=== PATIENT | male | born 1985 ===

== ENCOUNTER 2018-05-22 11:38 | Emergency (ER) | payer MEDICAID, OTHER ==
--- NOTE | 2018-05-22 14:06 | ED PDOC ---
Lower Extremity Pain/Injury Time Seen by Provider: 05/22/18 11:55 Chief Complaint (Nursing): Lower Extremity Problem/Injury Chief Complaint (Provider): Right Heel Pain History Per: Patient History/Exam Limitations: no limitations Onset/Duration Of Symptoms: Days Current Symptoms Are (Timing): Still Present Additional Complaint(s): 32 year old male presents to the ER for an evaluation of right heel pain after hitting his foot against a metal object onset 2 day ago. He states he was at work, pulling pallets and boxes when he was struck on the right heel. He felt pain and swelling. Patient used ice and warm compress with minimal relief. Patient did not take any pain medication. He has pain on right ankle and toes to a point where he walks on the front part of the toes and also had to leave work. Denies numbness or tingling in right leg or foot and no knee pain. Past Medical History Reviewed: Historical Data, Nursing Documentation, Vital Signs Vital Signs: Last Vital Signs Temp 97.8 F 05/22/18 11:49 Pulse 74 05/22/18 11:49 Resp 18 05/22/18 11:49 BP 102/77 05/22/18 11:49 Pulse Ox 98 05/22/18 11:49 - Medical History PMH: No Chronic Diseases - Surgical History Surgical History: Appendectomy - Family History Family History: States: Unknown Family Hx - Social History Current smoker - smoking cessation education provided: No Alcohol: None Drugs: Denies - Immunization History Hx Influenza Vaccination: No Hx Pneumococcal Vaccination: No - Home Medications Home Medications: Ambulatory Orders Medication Instructions Recorded Ibuprofen [Motrin] 600 mg PO Q6H #30 tab 03/15/17 Naproxen 500 mg PO BID PRN 5 Days tab 05/22/18 - Allergies Allergies/Adverse Reactions: Allergies Allergy/AdvReac Type Severity Reaction Status Date / Time No Known Allergies Allergy Verified 03/15/17 22:24 Review of Systems Musculoskeletal: Positive for: Foot Pain (right ankle), Other (right heel pain) Neurological: Negative for: Numbness, Other (tingling) Physical Exam - Reviewed Nursing Documentation Reviewed: Yes Vital Signs Reviewed: Yes - Physical Exam Appears: Positive for: Well, Non-toxic, No Acute Distress Head Exam: Positive for: ATRAUMATIC, NORMAL INSPECTION, NORMOCEPHALIC Extremity: Positive for: Normal ROM ( knee, ankle and toes with normal flexion, extension, inversion and eversion ), Tenderness (point tenderness on palpation of posterior aspect of the heel with edema and mild ecchymosis), Other (negative ledesma test for toes, sensitive to light touch intact in lower extremities ). Negative for: Deformity Neurologic/Psych: Positive for: Alert, Oriented (x3). Negative for: Motor/Sen eduin Deficits - ECG O2 Sat by Pulse Oximetry: 98 (RA) Pulse Ox Interpretation: Normal Medical Decision Making Medical Decision Making: Time: 1257 Initial Plan: Ibuprofen 600mg Heel Right [RAD] Reevaluation Upon provider evaluation patient is medically stable, and requires no further t reatment in the ED at this time. Patient will be discharged home with Naproxen 500mg for pain. Counseling was provided and all questions were answered regarding diagnosis and need for follow up with bill recapitulation clerk. There is agreement to discharge plan. Return if symptoms persist or worsen. Scribe Attestation: Documented by Crispin Sanchez, acting as a scribe for Татьяна Holguin PA-C Provider Scribe Attestation: All medical record entries made by the Scribe were at my direction and personally dictated by me. I have reviewed the chart and agree that the record accurately reflects my personal performance of the history, physical exam, medical decision making, and the department course for this patient. I have also personally directed, reviewed, and agree with the discharge instructions and disposition. Disposition - Clinical Impression Clinical Impression: Contusion of right heel - Patient ED Disposition Is Patient to be Admitted: No Counseled Patient/Family Regarding: Studies Performed, Diagnosis, Need For Followup - Disposition Referrals: Podiatry Clinic [Outside] Disposition: Routine/Home Disposition Time: 15:20 Condition: IMPROVED Additional Instructions: F/u with bill recapitulation clerk if pain persists despite using Naproxen. Rest it, ice it, use RANDA bandage for comfort. Prescriptions: Naproxen 500 mg PO BID PRN 5 Days tab PRN Reason: Pain, Moderate (4-7) Instructions: Contusion (DC) Forms: [facility] (Moroccan) Print Language: GEORGIAN
[2018-05-22 15:21] VITALS: BP 115/71; PULSE 77; RESP 16; TEMP 97.9
--- NOTE | 2018-05-22 15:21 | RAD ---
Date of service: 05/22/2018 PROCEDURE: Radiographs of the right calcaneus/hindfoot. HISTORY: hit heel against metal 3 days ago COMPARISON: None available. TECHNIQUE: Frontal and lateral radiographs of the calcaneus. FINDINGS: No fracture or joint dislocation. No focal lesion. No calcaneal spur. IMPRESSION: Unremarkable radiographs of the right calcaneus /hindfoot.
[2018-05-23 01:27] VITALS: O2SAT 98
== END 2018-05-22 15:21 | disposition home or self-care (01) ==
LOC: H.ER 11:38
DX: S90.31XA Contusion of right foot, initial encounter (principal); W22.8XXA Striking against or struck by other objects, initial encounter; Y99.0 Civilian activity done for income or pay